=== PATIENT | female | born 1960 | race Caucasian/White ===

== ENCOUNTER → 2020-09-22 | Outpatient (CLI) | payer OTHER ==
--- NOTE | 2020-09-22 16:06 | RAD ---
EXAM: Bilateral hands, 2 views. HISTORY: Pain. COMPARISON: None. FINDINGS: 2 views of both hands are obtained. There is no fracture, dislocation or subluxation. The a lignment and joint spaces are unremarkable. There is no foreign body. IMPRESSION: No acute osseous finding. Electronically signed by: Tamanna Snyder MD (09/22/2020 4:03 PM) [id number]
--- NOTE | 2020-09-22 16:09 | RAD ---
EXAM: Bilateral feet, 2 views. HISTORY: Pain. COMPARISON: None. FINDINGS: 2 views of both feet are obtained. There is no fracture, dislocation or subluxation. There is instrumented fusion of a distal right fibular fracture. There are moderate right and small left pl citlaly spurs. IMPRESSION: 1. Moderate right and small left plantar spurs. 2. Internal fixation of the distal right fibula. Electronically signed by: Tamanna Snyder MD (09/22/2020 4:07 PM) [id number]
== END ==
LOC: DXRAD 15:04
PROVIDERS: ATTEND Family Medicine
DX: M79.641 Pain in right hand (principal); M79.642 Pain in left hand; M79.671 Pain in right foot; M79.672 Pain in left foot
CPT/HCPCS: 73130; 73630

== ENCOUNTER → 2020-10-29 | Outpatient (CLI) | payer OTHER ==
[2020-10-29 23:07] LABS: RHEUMATOID FACTOR 11.1 IU/mL (0.0-13.9)
[2020-10-31 18:07] LABS: ANA INTERP Negative (.)
[2020-11-05 17:08] LABS: HLA B27 RESULT Negative (.)
== END ==
LOC: LAB 15:25
DX: M06.9 Rheumatoid arthritis, unspecified (principal)
CPT/HCPCS: 36415; 86038; 86140; 86431; 86812

== ENCOUNTER 2020-11-17 10:58 | Emergency (ER) | payer SELFPAY | END 2020-11-17 11:00 | disposition left against medical advice (07) | LOC: ER 10:58 | DX: S69.92XA Unspecified injury of left wrist, hand and finger(s), initial encounter (principal); Z53.21 Procedure and treatment not carried out due to patient leaving prior to being seen by health care provider; X58.XXXA Exposure to other specified factors, initial encounter; Y93.89 Activity, other specified; Y92.89 Other specified places as the place of occurrence of the external cause; Y99.8 Other external cause status ==